=== PATIENT | female | born 1980 | race American Indian/Alaskan Native ===

== ENCOUNTER 2021-04-22 22:22 | Emergency (ER) | payer SELFPAY ==
[2021-04-22 23:19] LABS: Basophils % (Auto) 0.7 % (0.0-1.8); Eosinophils # (Auto) 0.1 K/mm3 (0.0-0.4); Eosinophils % (Auto) 1.2 % (0.0-4.3); Hematocrit 39.2 % (30.3-42.9); Hemoglobin 13.4 gm/dl (10.1-14.3); Lymphocytes % (Auto) 30.4 % (13.4-35.0); Mean Corpuscular HGB Conc 34 % (30-34); Mean Corpuscular Volume 92 fl (79-97); Monocytes # (Auto) 0.6 K/mm3 (0.0-0.8); Monocytes % (Auto) 8.8 % (0.0-7.3); Platelet Count 277 K/mm3 (140-440); Red Blood Count 4.25 M/mm3 (3.65-5.03); Red Cell Distribution Width 13.7 % (13.2-15.2)
[2021-04-22 23:50] LABS: Erythrocyte Sedimentation Rate 17 mm/Hr (0-20)
--- NOTE | 2021-04-23 00:11 | Cat Scan Report ---
CT head without contrast INDICATION : Headache TECHNIQUE: Axial imaging performed from the skull apex through the skull base without the use of con trast. All CT examinations performed at this facility utilize dose modulation, iterative reconstruct ion or weight-based dosing, when appropriate, to reduce radiation dose to as low as reasonably achiev able. COMPARISON: None FINDINGS: No acute intracranial hemorrhage or parenchymal abnormality. Ventricles are normal in si ze and appear symmetric. Soft tissues including the orbits appear normal. No acute osseous abnorm ality. Sinuses and mastoid air cells are clear. IMPRESSION: No acute abnormality. Signer Name: Isaac Waldrop MD Signed: 04/23/2021 12:07 AM Workstation Name: [id number]
--- NOTE | 2021-04-23 01:11 | Emergency Department Report ---
ED Headache HPI - General Chief Complaint: Headache Stated Complaint: DIZZINESS,HEADACHE Time Seen by Provider: 04/22/21 22:34 - History of Present Illness Initial Comments: 41-year-old [place] female [facility] emerge department complaining of a 1+ month history episodic dull throbbing right-sided headaches associated with occasional dizziness, weakness, fatigue, myalgias. Reports having a past medical history of hypertension but states her blood pressure has been in normal range. Reports no nausea, no vomiting, no fever, no weight loss, hemoptysis no hematemesis, hematochezia, no chest pain or shortness of breath. Head Injury Location: parietal Recent Head Trauma: no recent headache/trauma Modifying Factors: improves with: cold therapy, medication Associated Symptoms: denies symptoms. denies: facial pain, fever/chills, nasal congestion, numbness in legs/feet, sinus infection, stiff neck, vision changes Allergies/Adverse Reactions: Allergies No Known Allergies Allergy (Verified 04/23/21 00:43) ED Review of Systems ROS: Stated complaint: DIZZINESS,HEADACHE Other details as noted in HPI Comment: All other systems reviewed and negative ED Past Medical Hx - Past Medical History Previous Medical History?: Yes Hx Headaches / Migraines: Yes - Surgical History Past Surgical History?: No - Social History Smoking Status: Never Smoker Substance Use Type: None ED Physical Exam - General Limitations: No Limitations General appearance: alert, in no apparent distress - Head Head exam: Present: atraumatic, normocephalic - Eye Eye exam: Present: normal appearance, PERRL, EOMI - ENT ENT exam: Present: mucous membranes moist - Neck Neck exam: Present: normal inspection - Respiratory Respiratory exam: Present: normal lung sounds bilaterally. Absent: respiratory distress - Cardiovascular Cardiovascular Exam: Present: regular rate, normal rhythm. Absent: systolic murmur, diastolic murmur, rubs, gallop - GI/Abdominal GI/Abdominal exam: Present: soft, normal bowel sounds - Extremities Exam Extremities exam: Present: normal inspection, normal capillary refill. Absent: tenderness - Back Exam Back exam: Present: normal inspection. Absent: CVA tenderness (R), CVA tenderness (L) - Neurological Exam Neurological exam: Present: alert, oriented X3, CN II-XII intact, normal gait, motor sensory deficit, reflexes normal - Psychiatric Psychiatric exam: Present: normal affect, normal mood - Skin Skin exam: Present: warm, dry, intact, normal color. Absent: rash ED Course Vital Signs 04/22/21 04/23/21 22:27 01:18 Temperature 98.2 F Pulse Rate 81 70 Respiratory 16 18 Rate Blood Pressure 170/95 140/85 Blood Pressure 170/95 [Left] O2 Sat by Pulse 100 100 Oximetry ED Medical Decision Making - Lab Data Result diagrams: 04/22/21 22:52 - EKG Data EKG shows normal: sinus rhythm - Radiology Data Radiology results: report reviewed [address] [address] Cat Scan Report Signed Patient: ALENA REINOSO MR#: [id number] : 1980 Acct:[id number] Age/Sex: 41 / F ADM Date: 04/22/21 Loc: ED Attending Dr: Ordering Physician: SAMI BENNETT Date of Service: 04/22/21 Procedure(s): CT head/brain wo con Accession Number(s): [id number] cc: SAIM BENNETT CT head without contrast INDICATION : Headache TECHNIQUE: Axial imaging performed from the skull apex through the skull base without the use of contrast. All CT examinations performed at this facility utilize dose modulation, iterative reconstruction or weight-based dosing, when appropriate, to reduce radiation dose to as low as reasonably achievable. COMPARISON: None FINDINGS: No acute intracranial hemorrhage or parenchymal abnormality. Ventricles are normal in size and appear symmetric. Soft tissues including the orbits appear normal. No acute osseous a bnormality. Sinuses and mastoid air cells are clear. IMPRESSION: No acute abnormality. Signer Name: Isaac Waldrop MD Signed: 04/23/2021 12:07 AM Workstation Name: [id number] Transcribed By: BC Dictated By: Isaac Waldrop MD Electronically Authenticated By: Isaac Waldrop MD Signed Date/Time: 04/23/21 0007 DD/ 0004 TD/TT: Print - Medical Decision Making [address] [address] Cat Scan Report Signed Patient: ALENA REINOSO MR#: [id number] : 1980 Acct:[id number] Problem 1 headache This patient presents with a headache most consistent with headache/migraine. Differential diagnosis includes migraine versus tension type headache. No headache red flags. Neurologic exam without evidence of meningismus, focal neurologic findings.Based on the patient's history and physical there is very low clinical suspicion for significant intracranial pathology. The headache was NOT sudden onset, NOT maximal at onset, there are NO neurologic findings, the patient does NOT have a fever, the patient does NOT have any jaw claudication, the patient does NOT endorse a clotting disorder, patient DENIES any trauma or eye pain and the headache is NOT associated with dizziness or ataxia. Presentation not consistent with acute intracranial bleed to include SAH (lack of risk factors, headache history). Presentation not consistent with acute BREAD STACKER infection to include meningitis or brain abscess, Temporal arteritis unlikely, as is acute angle closure glaucoma given history and physical findings. Presentation not consistent with other acute, emergent causes of headache at this time. Plan to treat symptomatically with pain medication. No indication for imaging/LP at this time. The patient condition appears improved she is sitting up getting up and down with no issues talking texting with with her daughter leaning over laughing no acute distress Plan: pain medication, CT brain [facility] [address] [place] [address] Cat Scan Report Signed Patient: ALENA REINOSO MR#: [id number] : 1980 Acct:[id number] Age/Sex: 41 / F ADM Date: 04/22/21 Loc: ED Attending Dr: Ordering Physician: SAMI BENNETT Date of Service: 04/22/21 Procedure(s): CT head/brain wo con Accession Number(s): [id number] cc: SAMI BENNETT CT head without contrast INDICATION : Headache TECHNIQUE: Axial imaging performed from the skull apex through the skull base without the use of contrast. All CT examinations performed at this facility utilize dose modulation, iterative reconstruction or weight-based dosing, when appropriate, to reduce radiation dose to as low as reasonably achievable. COMPARISON: None FINDINGS: No acute intracranial hemorrhage or parenchymal abnormality. Ventricles are normal in size and appear symmetric. Soft tissues including the orbits appear normal. No acute osseous a bnormality. Sinuses and mastoid air cells are clear. IMPRESSION: No acute abnormality. Signer Name: Isaac Waldrop MD Signed: 04/23/2021 12:07 AM Workstation Name: [id number] Transcribed By: BC Dictated By: Isaac Waldrop MD Electronically Authenticated By: Isaac Waldrop MD Signed Date/Time: 04/23/21 0007 DD/ 0004 TD/TT: Print serial reassessment . Problem 2 dizziness Based on the history, exam, and findings presentation not consistent with syncope, seizure, stroke, meningitis, symptomatic anemia, increased ICP, ICH. Additionally I have a low suspicion for labyrinthitis, acute otitis media or other infectious process. Prior to discharge the symptoms are controlled the patient is functioning well speaking in full sentences he is able to sit and stand and ambulate with no limitations and is able to utilize his cell phone in the form of texting and talking with video check with with no delay. Advise follow-up with primary care provider within 24 to 48 hours. Critical care attestation.: If time is entered above; I have spent that time in minutes in the direct care of this critically ill patient, excluding procedure time. ED Disposition Clinical Impression: Cephalgia Disposition: 01 HOME / SELF CARE / HOMELESS Is pt being admited?: No Does the pt Need Aspirin: No Condition: Stable Instructions: Form - Headache Record, Occipital Neuralgia, Cluster Headache, General Headache Without Cause, [id number], Migraine Headache, [id number] Referrals: PRIMARY [facility]EM[facility] [Primary Care Provider] - 3-5 Days [facility] [Provider Group] - 3-5 Days [facility] [Provider Group] - 3-5 Days [facility] [Provider Group] - 3-5 Days
[2021-04-23 01:20] VITALS: BP 140/85
[2021-04-23 01:28] LABS: HCG Qualitative,Urine Negative (Negative)
== END 2021-04-23 01:52 | disposition home or self-care (01) ==
LOC: ED 22:22
DX: R51.9 Headache, unspecified (principal)
CPT/HCPCS: 36415; 70450; 81025; 85025; 85652; 99284